=== PATIENT | male | born 1970 | race American Indian/Alaskan Native ===

== ENCOUNTER 2017-06-15 14:52 | Emergency (ER) | payer SELFPAY | END 2017-06-15 17:36 | disposition left against medical advice (07) | LOC: ED 14:52 | DX: R07.9 Chest pain, unspecified (principal); Z53.21 Procedure and treatment not carried out due to patient leaving prior to being seen by health care provider | CPT/HCPCS: 93005; 93010 ==

== ENCOUNTER 2017-06-16 11:40 | Emergency (ER) | payer OTHER ==
[2017-06-16 13:31] VITALS: BP 129/86
--- NOTE | 2017-06-16 14:03 | XRay Report ---
XRAY CHEST TWO VIEWS: 06/16/17 11:40:00 CLINICAL: Chest congestion. COMPARISON: None FINDINGS: Normal heart and pulmonary vasculature. The lungs are mildly hyperexpanded and clear.The bones and soft tissues are unremarkable. IMPRESSION: Mild pulmonary hyperinflation but otherwise normal.
--- NOTE | 2017-06-16 14:19 | Emergency Department Report ---
Minor Respiratory - HPI Chief Complaint: Upper Respiratory Infection Stated Complaint: FLU LIKE SYMPTOMS Time Seen by Provider: 06/16/17 14:16 Duration: 1 Day Pain Location: Throat Severity: mild Minor Respiratory: Yes Sore Throat, Yes Able to Tolerate Fluids, No Rhinorrhea, No Ear Pain, No Cough, No Sick Contacts, No Hemoptysis, No Chest Pain, No Shortness of Breath, No Fever ED Review of Systems ROS: Stated complaint: FLU LIKE SYMPTOMS Other details as noted in HPI Constitutional: denies: chills, fever Eyes: denies: eye pain, eye discharge, vision change ENT: congestion. denies: ear pain, throat pain, dental pain, hearing loss Respiratory: denies: cough, shortness of breath, wheezing Cardiovascular: denies: chest pain, palpitations Endocrine: no symptoms reported Gastrointestinal: denies: abdominal pain, nausea, diarrhea Genitourinary: denies: urgency, dysuria Musculoskeletal: denies: back pain, joint swelling, arthralgia Skin: denies: rash, lesions Neurological: denies: headache, weakness, paresthesias Psychiatric: denies: anxiety, depression Hematological/Lymphatic: denies: easy bleeding, easy bruising ED Past Medical Hx - Past Medical History Previous Medical History?: No - Surgical History Past Surgical History?: No - Social History Smoking Status: Current Every Day Smoker Substance Use Type: Alcohol - Medications Home Medications: Home Medications Medication Instructions Recorded Confirmed Last Taken Type D-Methorphan/PE/Acetaminophen 1 each PO Q6H #20 tablet 06/16/17 Unknown Rx [Tylenol Cold Multi-Symp Caplet] Ibuprofen [Motrin] 600 mg PO Q8H PRN #30 tablet 06/16/17 Unknown Rx guaiFENesin [Robitussin] 200 mg PO Q6HR #20 tablet 06/16/17 Unknown Rx Minor Respiratory Exam - Exam General: Vital signs noted. No distress. Alert and acting appropriately. HEENT: Yes Moist Mucous Membranes, No Pharyngeal Erythema, No Pharyngeal Exudates, No Rhinorrhea, No Conjuctival Injection, No Frontal Tenderness, No Maxillary Tenderness Ear: Neither TM Bulge, Neither TM Erythema, Neither EAC Pain, Neither EAC Discharge Neck: Yes Supple, No Adenopathy Lungs: Yes Good Air Exchange, No Wheezes, No Ronchi, No Stridor, No Cough, No Labored Respirations, No Retractions, No Use of Accessory Muscles, No Other Abnormal Lung Sounds Heart: Yes Regular, No Murmur Abdomen: Yes Normal Bowel Sounds, No Tenderness, No Peritoneal Signs Skin: No Rash, No Edema Neurologic: Alert and oriented, no deficits. Musculoskeletal: Unremarkable. ED Course Vital Signs 06/16/17 13:27 Temperature 98.8 F Pulse Rate 92 H Blood Pressure 129/86 O2 Sat by Pulse 94 Oximetry ED Medical Decision Making - Radiology Data Radiology results: report reviewed, image reviewed cc: ED DOC, Fluoro Time In Minutes: XRAY CHEST TWO VIEWS: 06/16/17 11:40:00 CLINICAL: Chest congestion. COMPARISON: None FINDINGS: Normal heart and pulmonary vasculature. The lungs are mildly hyperexpanded and clear.The bones and soft tissues are unremarkable. IMPRESSION: Mild pulmonary hyperinflation but otherwise normal. Transcribed By: REF Dictated By: ELHAM HARTMANN MD Electronically Authenticated By: ELHAM HARTMANN MD Signed Date/Time: 06/16/17 1024 - Medical Decision Making 47-year-old male presents with upper respiratory infection ED Course: Patient received for Robitussin and prednisone Chest x-ray shows no acute pulmonary infection I discussed this findings with the patient. Discussed the patient to follow up with primary care physician in 3-5 days. I discussed with the patient to take medication as prescribed, drink plenty of water, get appropriate rest Vital signs are normal, patient is in no acute or respiratory distress. Patient states he understands his instructions and follow-up. Critical care attestation.: If time is entered above; I have spent that time in minutes in the direct care of this critically ill patient, excluding procedure time. ED Disposition Clinical Impression: Viral syndrome URI (upper respiratory infection) Qualifiers: URI type: unspecified URI Qualified Code(s): J06.9 - Acute upper respiratory infection, unspecified Disposition: - TO HOME OR SELFCARE Is pt being admited?: No Does the pt Need Aspirin: No Condition: Stable Instructions: Upper Respiratory Infection (ED), Cold Symptoms (ED) Additional Instructions: Make sure to follow up with the primary care physician as discussed. Take all your medications as you've been prescribed. If you have any worsening symptoms or develop new symptoms please return to ED immediately. drink plenty of fluids. Take vitamin C daily. Prescriptions: D-Methorphan/PE/Acetaminophen [Tylenol Cold Multi-Symp Caplet] 1 each PO Q6H # 20 tablet guaiFENesin [Robitussin] 200 mg PO Q6HR #20 tablet Ibuprofen [Motrin] 600 mg PO Q8H PRN #30 tablet PRN Reason: Pain Referrals: PRIMARY CARE,MD [Primary Care Provider] - 3-5 Days [facility] [place] [Outside] - 3-5 Days [facility] [Outside] - 3-5 Days Forms: Work/School Release Form(ED) Time of Disposition: 14:48
[2017-06-16] MEDS ORDERED: ROBITUSSIN PO ONE (14:45)
[2017-06-16] MEDS ORDERED: DELTASONE PO ONE (14:45)
== END 2017-06-16 14:59 | disposition home or self-care (01) ==
LOC: ED 11:40
DX: B34.9 Viral infection, unspecified (principal); J06.9 Acute upper respiratory infection, unspecified; F17.200 Nicotine dependence, unspecified, uncomplicated
CPT/HCPCS: 71046; 87400; 99283; J7512